=== PATIENT | female | born 1990 | race American Indian/Alaskan Native ===

== ENCOUNTER 2019-07-10 04:12 | Inpatient (IN) | payer SELFPAY ==
[2019-07-10] MEDS: Lactated Ringers 1,000 ML IV SCH ×2 (05:05→17:00)
[2019-07-10] MEDS ORDERED: Carboprost Tromethamine 250 MCG/1 ML Amp IM PRN (05:20)
[2019-07-10] MEDS ORDERED: Citric Acid/Sodium Citrate Solution 30 ML Cup PO ONE (05:20)
[2019-07-10] MEDS ORDERED: Acetaminophen 325 MG Tab PO PRN (05:20)
[2019-07-10] MEDS ORDERED: ePHEDrine 50 MG/ML SDV IVPUSH PRN (05:20)
[2019-07-10] MEDS ORDERED: diphenhydrAMINE 50 MG/ML SDV IVPUSH PRN (05:20)
[2019-07-10] MEDS ORDERED: Misoprostol 400 MCG (4 X 100 MCG TAB) RECTAL PRN (05:20)
[2019-07-10] MEDS ORDERED: Ondansetron 4 MG/2 ML SDV IV PRN (05:20)
[2019-07-10] MEDS ORDERED: Methylergonovine 0.2 MG/1 ML Amp IM PRN (05:20)
[2019-07-10] MEDS ORDERED: Tranexamic Acid 1,000 MG in Sodium Chloride 0.9% 100 ML IV PRN (05:20)
[2019-07-10] MEDS ORDERED: ceFAZolin 2 GM in Premix Bag 1 BAG IV ONE (05:20)
[2019-07-10] MEDS ORDERED: Naloxone 2 MG/2 ML Syringe IVPUSH PRN (05:20)
[2019-07-10] MEDS ORDERED: Acetaminophen/oxyCODONE 325-5 MG Tab PO PRN (05:20)
[2019-07-10] MEDS ORDERED: Ketorolac 30 MG/ML SDV IVPUSH SCH (05:30)
[2019-07-10] MEDS ORDERED: Oxytocin/Normal Saline 30 UNIT/500 ML BAG IV SCH (06:45)
[2019-07-10] MEDS: Simethicone 80 MG Tab.Chew PO SCH ×4 (08:53→21:46)
[2019-07-10] MEDS ORDERED: cefTRIAXone 1 GM in Sodium Chloride 0.9% 50 ML IV ONE (09:00)
[2019-07-10] MEDS: Prenatal Multivitamin with Calcium/Folic Acid/Iron Tab PO SCH (09:54)
--- NOTE | 2019-07-10 12:16 | HP ---
PATIENT IDENTIFICATION: Judy Daily is a 28-year-old, G7, P4-0-2-4, intrauterine by 39+ weeks by ultrasound on date of admission, who presents with contractions. HISTORY OF PRESENT ILLNESS: The patient has had no care until the visit on early childhood worker of 07/10/2019, after describing having contractions starting shortly after midnight on date of admission, felt in the lower abdomen, rated 6 to 7 out of 10, coming every 3 to 5 minutes, worsening over time. Nothing seems to make them better and associated with bloody show, but no leaking of fluid. To put this in context, no care up to this point in time. She believes she is term based on an saji that she used on her phone. ALLERGIES: None. MEDICATIONS: Admits to Percocet usage regularly, at least 3-5 times a week. No other medications listed. PAST MEDICAL/PAST SURGICAL HISTORY: Remarkable for cholecystectomy in 2010 or 2011, an that was either for ectopic or with D and C on 12/08/2009, and history of seizures that she relates later after going to the operating room x3, did not follow up with neurologist, none since then, was in the distant past. FAMILY HISTORY: Negative for anesthesia or bleeding problems. defects in terms of Down syndrome in a cousin. Mother's side has diabetes mellitus, unsure about a lot of father's side of history. SOCIAL HISTORY: The patient recently moved from [place] in December, January, or February, she is unsure when, to live with her father in [place] and is hiding from father of her previous babies as well as going through a separation and her children are with him other than a daughter who presents with her today. She does state that she smokes off and on, on an irregular basis. She does describe THC usage that used to be heavy and cut back and quit about 3 to 4 months ago and admits to Percocet use as above under medications. Father of the baby is different from other children and is not involved and unknown at this time. OB HISTORY: 1. 12/22/2008; spontaneous vaginal delivery yielding a female, weighing 7 pounds 13 ounces. 2. 09/05/2016; spontaneous vaginal delivery yielding a male, 7 pounds 9 ounces. 3. 11/20/2016; spontaneous vaginal delivery of female weighing 9 pounds. 4. 01/24/2018; female, spontaneous vaginally, weighing 7 pounds 3 ounces. 5. 12/08/2009; had ectopic versus with D and C. 6. Miscarriage in July 2018. REVIEW OF SYSTEMS: Otherwise, review of systems fully reviewed and felt to be noncontributory other than noted above. She denies any headaches, visual changes, or upper abdominal pain. OBJECTIVE: Vital Signs: Blood pressure 142/97, heart rate 85. The patient feels afebrile. Appearance: Female, appears her stated age, acting appropriate for age, breathing through contractions, but answering questions appropriately. HEENT: Head is atraumatic. EOMs intact. PERRLA. No scleral icterus. No otorhinorrhea. Mucous membranes moist. Neck: No obvious tenderness. Lungs: Clear to auscultation bilaterally. No increased work of breathing. Heart: S1 and S2. Regular rate and rhythm. Abdomen: Gravid. Atif indeterminate. Nontender and nondistended. Bowel sounds positive. No organomegaly, pulsatile masses, or obvious hernias. No rebound, rigidity, or guarding with monitors applied. : Sterile speculum done after ultrasound was done, reveals no previa, does reveal a bulging bag of water. GC, chlamydia, and wet prep obtained. Vaginal exam thereafter reveals her to be 6 to 7 cm, 85% to 90% effaced, -1 to -2 station. Breech presentation suspected. Extremities: No peripheral edema. Deep tendon reflexes 2 to 3 out of 4 bilaterally and symmetric in the lower extremities. Psychiatric: Mood and affect congruent. Judgment and insight are intact. Skin: Without any cyanosis, clubbing, or jaundice. Tocometer reveals contractions every 3 to 5 minutes. heart tones in the 130s to 140s range and felt to be reactive and reassuring. Ultrasound reviewed with tech and by my eyes revealed inna breech-type presentation with anterior placenta and measurements being 39+ weeks on average via ultrasound. INVESTIGATIONS: White cell count 9.6, hemoglobin 10.7, platelets 245. HELLP labs within normal limits. Creatinine low at 0.5. Urine; trace occult blood, nitrite positive, small leukocyte esterase, 5-10 red cells and white cells per high-power field with many bacteria, few mucus, and ippvfxt-qv-vuyctuqkew ratio was 0.1, and urine drug screen positive for oxycodone. ASSESSMENT: 1. Intrauterine at 39+ weeks by ultrasound today. 2. No care. 3. Inna breech presentation. 4. Active labor with advanced cervical dilation. 5. Positive urine drug screen for oxycodone with admitted use for this. 6. G7, P4-0-2-4. 7. Group B Streptococcus unknown. 8. Gestational hypertension, suspected based on elevated blood pressures and negative workup for HELLP or preeclampsia. PLAN: Due to inna breech presentation with advanced cervical dilation with active labor, I did discuss with the patient proceeding to as soon as possible. I did discuss with her risks, benefits, alternatives, and complications of this including, but not limited to, infection, bleeding, damage to internal organs such as bowel, bladder, tubes, uterus, ovaries, and sometimes fetus rarely needing a blood transfusion or further surgery, and rarer maternal or . She understands, agrees, and wishes to proceed. Verbal and written consent obtained. Questions were answered. Please see NST notes for further details as well. The patient was brought to the operating room as soon as crew was ready and available and underwent a primary low transverse . Please see other notes in regard to this. [facility] /[id number]
--- NOTE | 2019-07-10 12:55 | OR ---
DATE: 07/10/2019 PREOPERATIVE DIAGNOSES: 1. Intrauterine at 39+ weeks based on ultrasound today. 2. No care. 3. Active labor, being 6-7 cm with advanced cervical dilation upon admission. 4. Inna breech presentation. 5. Admitted oxycodone and Percocet usage on a regular basis during the . 6. GBS unknown. 7. G7, P4-0-2-4. POSTOPERATIVE DIAGNOSES: 1. Intrauterine at 39+ weeks based on ultrasound today- delivered. 2. No care. 3. Active labor, being 6-7 cm with advanced cervical dilation upon admission. 4. Inna breech presentation. 5. Admitted oxycodone and Percocet usage on a regular basis during the . 6. GBS unknown. 7. G7, P4-0-2-4. PROCEDURES PERFORMED: NST followed by primary low transverse with 2- layer uterine closure. WAFER MACHINE OPERATOR: Shweta Lemus MD ANESTHESIA: Spinal. ESTIMATED BLOOD LOSS: 500 mL. IV FLUIDS: 1200 mL. URINE OUTPUT: 400 mL and clear yellow. START: 05:55. UTERINE: 06:00. DELIVERY: 06:01. STOP: 06:19. FINDINGS: Female, score 8 and 8, with inna breech presentation noted with delivery. DESCRIPTION OF PROCEDURE IN DETAIL: After proper consent was obtained, the patient was brought to the operating room where spinal anesthetic was administered. A Quinonez was placed in preop under sterile conditions. Abdomen was prepped and draped in normal sterile fashion. Patient was placed in supine position with left lateral tilt. A skin incision was then made over the lower abdomen in a transverse Pfannenstiel-type fashion. This was carried down to the fascia and scored in the midline. Subcutaneous tissue raked laterally with Gonzalez retractor. Fascial incision was extended in a transverse fashion and curved Waggoner's. Chyna clamps x2 were used to grasp the superior aspect of the fascia and rectus muscles dissected from the fascia using sharp and blunt technique. In a similar fashion, Chyna clamps x2 were used to grasp the inferior portion of the incision and rectus and pyramidalis muscle were dissected from the fascia using sharp and blunt technique. Rectus muscles were in midline with blunt technique. Abdominal cavity was entered with blunt technique and the incision was extended superiorly and inferiorly with blunt technique. Jason O large retractor was then introduced and used. Vesicouterine peritoneum was identified and incised in transverse fashion with Metzenbaum scissors, and bladder flap was made digitally. A curvilinear incision was made on the lower uterine segment at 0600 hours. Uterus was entered sharply. Minimal clear fluid returned. Uterine incision was then extended in transverse fashion using blunt technique. With entry into the uterus, there was inadvertent small laceration noted on infant's bottom half. On visualization during the surgery, this was less than a centimeter and half in length and seemed very superficial. breech with inna presentation was noted and delivered through the uterine incision. back was made anterior. Further delivery of the fetus was done and shoulders were delivered by sweeping the arms anteriorly across the chest and vertex was delivered with flexing of the head. This required minimal manipulation. Mouth and nares were suctioned. Cord was doubly clamped and cut, and was brought over to team. Then, approximately 10 mL of cord blood obtained for labs. Placenta then delivered with gentle cord traction and fundal massage. Uterine cavity was then cleared of all blood clots and debris with lap sponge. Eldridge clamps were used to grasp the uterine incision. This was closed in a running locked fashion and tied at lateral margins with 1-0 Vicryl. Second imbricating layer was applied with 1-0 Vicryl, tied at lateral margins. First inspection of the uterine incision revealed hemostasis. Jason O retractor was then removed and paracolic gutters were then cleared of all blood clots and debris with lap sponge. Anterior cul-de-sac was irrigated copiously and all blood clots and debris removed. Second and final inspection of the uterine incision and anterior cul-de-sac revealed hemostasis. Rectus muscles were then reapproximated in midline with [id number] stitch using 1-0 Vicryl. Left side of rectus muscles, there was minimal oozing and bleeding. Electrocautery was used and hemostasis was reassured. Subfascial tissues were found to be hemostatic and then fascia was closed in a running fashion and tied at lateral margins with 0 looped PDS. Subcutaneous tissue was irrigated copiously, hemostasis was reassured. Skin was reapproximated with medium supa. Sterile Aquacel dressing was applied. Uterine fundus was firm and massaged at the conclusion of this case -1 below umbilicus No immediate complications were noted. Sponge, lap, and needle counts were correct. The patient received 2 g of Ancef preoperatively, Pitocin per protocol, and will receive Toradol at the conclusion of the case for pain control. Mother and are currently stable at the time of dictation. [facility] /[id number]
[2019-07-10] MEDS: Ketorolac 30 MG/ML SDV IVPUSH SCH ×2 (13:06→18:45)
[2019-07-10] MEDS: Acetaminophen/oxyCODONE 325-5 MG Tab PO PRN ×3 (13:07→21:46)
--- NOTE | 2019-07-10 13:46 | OBOUT ---
DATE: 07/10/2019 TIME: 4:30 to 4:50. REASON FOR NST: 1. Intrauterine , 39+ weeks based on ultrasound today. 2. No care. 3. Active labor, being 6 to 7 cm. 4. Advanced cervical dilation upon admission. 5. Breech presentation. 6. Admitted on oxycodone/Percocet usage on a regular basis during the . 7. Group B streptococcus unknown. 8. 7, Para 4-0-2-4. NST INTERPRETATION: During this time period, heart tone baseline is approximately 130 and there are at least two 15 x 15 beats per minute accelerations, making strip reactive. It is also noted to be reassuring. Tocometer reveals potential of 5 contractions during this time period, felt by the patient. ASSESSMENT: 1. Nonstress test, reactive and reassuring. 2. Tocometer with contractions. PLAN: At current time of dictation, ultrasound has been completed. She is in a breech presentation with an anterior fundal type placenta that appears to be mature. With speculum exam, she was noted to have bulging bag of water. GC, chlamydia and wet prep were obtained as well as GBS and vaginal exam revealed her to be 6 to 7 cm, and stat was called for. I did call the team in stat as soon as the dental equipment technician revealed that it was breech when he was doing the ultrasound; therefore, we will proceed to the OR as soon as crew is ready and available. I did discuss with patient risks, benefits, alternatives, and complication of including, but not limited to, infection, bleeding, damage to internal organs such as bowel, bladder, tubes, uterus, ovaries, and sometimes fetus rarely needing a blood transfusion or further surgery and rarer maternal or . She understands, agrees, and wishes to proceed. Verbal and written consent were been obtained. Questions were answered. We will proceed to the OR as soon as crew is ready and available. [facility] /[id number]
[2019-07-10] MEDS ORDERED: Oxytocin/Normal Saline 30 UNIT/500 ML BAG IV ONE (15:22)
[2019-07-10] MEDS ORDERED: Lactated Ringers 1,000 ML IV ONE (15:46)
[2019-07-10] MEDS ORDERED: Dexamethasone 4 MG/ML SDV IV ONE (15:46)
[2019-07-10] MEDS ORDERED: Ondansetron 4 MG/2 ML SDV IV ONE (15:46)
[2019-07-10] MEDS ORDERED: Morphine PF 1 MG/ML Amp ONE (15:46)
[2019-07-10] MEDS ORDERED: Ketorolac 30 MG/ML SDV IVPUSH ONE (15:46)
[2019-07-10] MEDS: Docusate Sodium 100 MG Cap PO PRN (21:46)
[2019-07-11] MEDS: Ketorolac 30 MG/ML SDV IVPUSH SCH (00:32)
[2019-07-11] MEDS: Lactated Ringers 1,000 ML IV SCH (00:38)
[2019-07-11] MEDS: Acetaminophen/oxyCODONE 325-5 MG Tab PO PRN ×6 (02:19→23:06)
[2019-07-11] MEDS: Ibuprofen 800 MG Tab PO PRN ×2 (08:44→16:20)
[2019-07-11] MEDS: Simethicone 80 MG Tab.Chew PO SCH ×4 (08:45→20:57)
[2019-07-11] MEDS: Docusate Sodium 100 MG Cap PO PRN ×2 (08:45→20:57)
[2019-07-11] MEDS: Prenatal Multivitamin with Calcium/Folic Acid/Iron Tab PO SCH (08:45)
[2019-07-11] MEDS: cefTRIAXone 1 GM in Sodium Chloride 0.9% 50 ML IV SCH (09:50)
[2019-07-12] MEDS: Ibuprofen 800 MG Tab PO PRN ×3 (00:07→16:31)
[2019-07-12] MEDS: Acetaminophen/oxyCODONE 325-5 MG Tab PO PRN ×5 (03:05→20:35)
[2019-07-12] MEDS: Docusate Sodium 100 MG Cap PO PRN ×2 (06:59→20:36)
[2019-07-12] MEDS: Simethicone 80 MG Tab.Chew PO SCH ×4 (08:16→20:34)
[2019-07-12] MEDS: Prenatal Multivitamin with Calcium/Folic Acid/Iron Tab PO SCH (08:17)
[2019-07-12] MEDS: cefTRIAXone 1 GM in Sodium Chloride 0.9% 50 ML IV SCH (09:59)
[2019-07-12] MEDS: Cephalexin 500 MG Cap PO SCH ×2 (11:21→17:03)
[2019-07-13] MEDS: Acetaminophen/oxyCODONE 325-5 MG Tab PO PRN ×3 (00:37→08:58)
[2019-07-13] MEDS: Cephalexin 500 MG Cap PO SCH ×2 (00:37→06:13)
[2019-07-13] MEDS: Ibuprofen 800 MG Tab PO PRN ×2 (00:39→08:57)
[2019-07-13] MEDS: Prenatal Multivitamin with Calcium/Folic Acid/Iron Tab PO SCH (08:55)
[2019-07-13] MEDS: Simethicone 80 MG Tab.Chew PO SCH (08:56)
[2019-07-13] MEDS: Docusate Sodium 100 MG Cap PO PRN (08:56)
--- NOTE | 2019-07-13 09:21 | PN ---
DATE: 07/12/2019 Postop day #2 status post primary low transverse with 2-layer uterine closure for breech presentation with active labor and advanced cervical dilation. SUBJECTIVE: The patient is tolerating p.o., ambulating, urinating, passing flatus. She has been using her Percocet almost scheduled and has a history of regular oxycodone/Percocet usage prior and during the . OBJECTIVE: Vital Signs: Temperature 99.2, heart rate 67, blood pressure 134/77, respiratory rate 16. Lungs: Clear to auscultation bilaterally. Heart: S1, S2. Regular rate and rhythm. Genitourinary: Firm uterus minus 1 below umbilicus. Aquacel dressing has minimal shadowing right of midline. Has been trace to not increased in size. LABORATORY DATA: White cell count 8.7, hemoglobin 8.8, platelets 237. E. coli returned on culture and sensitivities, it is sensitive to cefazolin. ASSESSMENT AND PLAN: 1. Postop day #2 status post primary low transverse with 2-layer uterine closure for advanced cervical dilation, active labor, and a breech presentation with no care. We will continue to follow clinically and closely. 2. Anemia, acute blood loss. Hemoglobin dropping from 10.7 to 8.6 at its lowest. Now, it is 8.8 and stable. 3. Urinary tract infection with gram-negative rods. Culture and sensitivity did come back with identification for Escherichia coli as well as it is sensitive to cefazolin, and we will start Keflex today, stop the Rocephin. Possible discharge tomorrow, discussed with the patient. [facility] /[id number]
--- NOTE | 2019-07-13 09:25 | PN ---
DATE: 07/11/2019 Postop day #1. SUBJECTIVE: The patient is tolerating p.o., has ambulated, urinated, and passing flatus. States pain is somewhat under control. She has been using increased dosing of Percocet and does note that she has been abusing Percocet prior and during this . OBJECTIVE: Vital Signs: Temperature 98.4, heart rate 75, blood pressure 128/77, and respiratory rate 16. Lungs: Clear to auscultation bilaterally. Heart: S1, S2. Regular rate and rhythm. Abdomen: Firm uterus at approximately the umbilicus, Aquacel dressing has some minor shadowing that has been traced on lateral portion of the dressing. Musculoskeletal: No calf pain is elicited. LABORATORY DATA: White cell count 10; hemoglobin 8.6, compared to predelivery hemoglobin of 10.7; and platelets 215. Other labs returned revealing her to be rubella immune. Urine culture preliminary revealed greater than 100,000 colony- forming units of gram-negative rods. She was given Rocephin initially yesterday. She is not currently breast feeding. ASSESSMENT: 1. Postoperative day #1, status post primary low transverse with 2- layer uterine closure for inna breech presentation with advanced cervical dilation and active labor upon admission. 2. Anemia of acute blood loss. Hemoglobin dropping down to 8.6 from 10.7. The patient is currently asymptomatic. We will follow vital signs and symptoms. 3. Urinary tract infection with gram-negative rods. We will start her on antibiotics. Please see orders in regard to this. She did receive Rocephin yesterday as nitrite was positive on her urinalysis, and this was given shortly after delivery. PLAN: We will continue to follow clinically and closely. Watch for any other signs or symptoms of infection or withdrawals and treat accordingly. The patient understands and agrees with the above treatment plan. [facility] /[id number]
--- NOTE | 2019-07-15 09:24 | DISCH ---
ADMITTING DIAGNOSES: 1. Intrauterine at 39+ weeks based on ultrasound on admission. 2. No care. 3. Active labor, being 6 to 7 cm upon admission. 4. Inna breech presentation. 5. Admitted to oxycodone and Percocet use. This was positive for oxycodone upon admission. 6. GBS unknown. 7. G7, P4-0-2-4. 8. Anemia of with hemoglobin 10.7. DISCHARGE DIAGNOSES: 1. Intrauterine at 39+ weeks based on ultrasound on admission- delivered. 2. No care. 3. Active labor, being 6 to 7 cm upon admission. 4. Inna breech presentation. 5. Admitted to oxycodone and Percocet use. This was positive for oxycodone upon admission. 6. GBS unknown. 7. G7, P4-0-2-4. 8. Anemia of acute blood loss, hemoglobin dropping down to 8.6 postop day #1. 9. Hepatitis B surface antigen, hep C antibody negative, HIV nonreactive, rubella immune. 10.Urinary tract infection with Escherichia coli sensitive to cephalosporins and cefazolin. She was given Rocephin and then switched to Keflex and will be sent home with Keflex. PROCEDURES PERFORMED: NST followed by primary low transverse with two layer uterine closure per Dr. Garibay. HISTORY OF PRESENT ILLNESS: Please see H and P. SUMMARY OF HOSPITAL COURSE: The patient was admitted on the above date with the above diagnoses, in active labor, advanced cervical dilation, and no care. She was found to be 39+ weeks with inna breech presentation, and underwent primary low transverse with 2-layer uterine closure, EBL 500 mL, yielding a female, scores 8 and 8, weighing 3765 g (8 pounds 5 ounces). Please see op report for further details. Postop day #1 and #2, please see progress notes. The patient did require some pain medicines and was using them regularly. Describes using them earlier in the as well. Recorder Helper Seismograph was consulted in regard to this. DISCHARGE EVALUATION: The patient is tolerating p.o., ambulating, urinating, passing flatus, and requesting discharge. PHYSICAL EXAMINATION: Vital Signs: Last set of vitals updated and listed in chart. Temperature 98.1; heart rate 88; blood pressure 144/85, recheck prior was 136/86 earlier in the day, respiratory rate 16. Lungs: Clear to auscultation bilaterally. Heart: S1, S2. Regular rate and rhythm. Genitourinary: Firm uterus around the umbilicus. Aquacel dressing appears to be minimally shadowed on the right side, not increasing in size over the last 24 to 48 hours. Extremities: No peripheral edema. No calf pain. LABORATORY DATA: Last hemoglobin was 8.8 on 07/12/2019. CONDITION ON DISCHARGE COMPARED TO CONDITION ON ADMISSION: Improved. DISCHARGE INSTRUCTIONS: 1. Diet as tolerated. 2. Activity: No lifting more than 20 pounds. No sit-ups, straining, and pelvic rest for the next 6 weeks with immediate return to fertility discussed with the patient. 3. Reasons to go to the emergency room were discussed with the patient in detail including, but not limited to, temperature greater than 100.4, foul- smelling discharge, red hot tender breasts, or increased vaginal bleeding, or increasing pain, drainage, or redness around the incision. DISCHARGE MEDICATIONS: 1. Yfmj-fpz-tjzfeay ibuprofen for pain. 2. Percocet 5/325 one to two q.6 hours p.r.n., #10, no refills. Discussed use of this medications, adverse and unwanted effects, as well as precautions. 3. Iron sulfate 325 b.i.d. x6 weeks, dispensed q.s., no refills. 4. Colace 100 mg b.i.d. p.r.n., #60, no refills. 5. vitamins daily x6 weeks, dispensed q.s., no refills. 6. Keflex 500 mg q.i.d. x7 days, #28, no refills. I did discuss the importance of followup and ramifications of not doing so with the patient as well as the importance of followup with her . Followup on 07/15/2019, for staple removal. Please see discharge paperwork for further details. As noted above, Recorder Helper Seismograph was consulted for her as well as for baby. [facility] /[id number]
== END 2019-07-13 11:50 | disposition home or self-care (01) | DRG 787 ==
LOC: DL.OBCHECK 04:12 → DL.OB 04:13 → OBSVTOIN 06:01 → DL.OB 06:01
PROVIDERS: ADMIT Family Medicine; ATTEND Family Medicine
PROC: 10D00Z1 Extraction of Products of Conception, Low, Open Approach (ICD-10-PCS; principal; 2019-07-10)
PROC: 4A0HXCZ Measurement of Products of Conception, Cardiac Rate, External Approach (ICD-10-PCS; 2019-07-10)
PROC: 3E0234Z Introduction of Serum, Toxoid and Vaccine into Muscle, Percutaneous Approach (ICD-10-PCS; 2019-07-10)
DX: O32.1XX0 Maternal care for breech presentation, not applicable or unspecified (principal); D62 Acute posthemorrhagic anemia; O86.20 Urinary tract infection following delivery, unspecified; B96.20 Unspecified Escherichia coli [E. coli] as the cause of diseases classified elsewhere; Z3A.39 39 weeks gestation of pregnancy; Z37.0 Single live birth; Z88.8 Allergy status to other drugs, medicaments and biological substances; Z23 Encounter for immunization
CPT/HCPCS: 01961; 36415; 51702; 76815; 80305-QW; 80307; 81001; 82565; 82570; 83615; 84156; 84450; 84460; 84520; 84550; 85027; 86592; 86762; 86803; 86850; 86900; 86901; 87081; 87086; 87088; 87186; 87210; 87340; 87389; 87491; 87591; 94010; A9270-GY; J0690; J0696; J1100; J1885; J2274; J2405; J2590; J7050; J7120